=== PATIENT | female | born 2000 | race Two or more races ===

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

== ENCOUNTER 2018-02-24 16:30 | Observation (INO) | payer SELFPAY ==
[2017-11-15 10:55] VITALS: BP 123/62
[~2018-02-24 16:30] MED LIST changes: +CEPH500T PO; +ONDA4TAB10 SL; +PNV1TABL25 PO
[2018-02-24 17:14] LABS: BARBITURATES NEG (NEG); BENZODIAZEPINES NEG (NEG); CANNABINOIDS NEG (NEG); COCAINE NEG (NEG); METHADONE NEG (NEG); OPIATES NEG (NEG); PHENCYCLIDINE NEG (NEG)
[2018-02-24 17:19] LABS: AMPHETAMINE/METHAMPHETAMINE NEG (NEG)
[2018-02-24 17:25] LABS: BILIRUBIN,URINE NEGATIVE (NEG); CLARITY,URINE CLEAR; COLOR,URINE YELLOW; NITRITE,URINE NEGATIVE (NEG); PH,URINE 5.5; PROTEIN,URINE NEGATIVE (NEG-TRACE)
[2018-02-24 17:33] LABS: BACTERIA,URINE 0 /HPF (0-FEW); RBC,URINE 0 /HPF (0-2); SQUAMOUS EPITHELIAL CELL,UR FEW /LPF; WBC,URINE 0 /HPF (0-4)
== END 2018-02-24 18:45 | disposition home or self-care (01) ==
LOC: 3 SO LND 16:30
PROVIDERS: ADMIT Specialist; ATTEND Specialist
DX: O23.42 Unspecified infection of urinary tract in pregnancy, second trimester (principal); Z3A.23 23 weeks gestation of pregnancy; Z79.899 Other long term (current) drug therapy
CPT/HCPCS: 80307; 81001; G0378; G0379; G0479